=== PATIENT | male | born 1955 | race Caucasian/White ===

== ENCOUNTER 2016-12-25 08:43 | Emergency (ER) | payer BC ==
[~2016-12-25] VITALS: Ht 170.2 cm; Wt 76.0 kg
[2016-12-25 08:49] VITALS: BP 122/72; PULSE 76; RESP 16; TEMP 97.5; O2SAT 98
--- NOTE | 2016-12-25 09:24 | PD ---
HPI Chief Complaint: ENT Complaint Time Seen by Provider: 09:09 Travel History International Travel<30 days: No Contact w/Intl Traveler<30days: No Traveled to known affect area: No History of Present Illness HPI This patient complains of right ear pain. His hearing is normal. He's been using some eardrops prescribed by his doctor but they haven't been helping. Symptoms severity is moderate PFSH Past Medical History Medical History: Denies Significant Hx Social History Alcohol Use: Yes (OCC) Tobacco Use: No Substance Use: No Allergies-Medications (Allergen,Severity, Reaction): Coded Allergies: No Known Allergies (Verified Allergy, Unknown, 12/25/16) Review of Systems General / Constitutional: No: Fever HENT: No: Headaches Cardiovascular: No: Chest Pain or Discomfort Physical Exam Narrative NECK: Symmetrical appearance, midline trachea. No mass or crepitus. Thyroid without enlargement, tenderness, or mass. SKIN: Focused skin assessment reveals no rash or ulcers. Skin is warm and dry. Palpation shows no induration or nodules. Throat clear Left TM and canal normal Right canal is erythematous and inflamed with a bit of drainage Right pinna looks normal with no mastoid tenderness Data Data Last Documented VS Vital Signs Date Time Temp Pulse Resp B/P (MAP) Pulse Ox O2 Delivery O2 Flow Rate FiO2 12/25/16 08:49 97.5 76 16 122/72 (89) 98 MDM Medical Decision Making Medical Screen Exam Complete: Yes Emergency Medical Condition: Yes Medical Record Reviewed: Yes Differential Diagnosis Otitis externa, otitis media, pharyngitis Narrative Course I have reviewed the patient's electronic medical record. Patient's exam does suggest a right sided otitis externa He will stop the drops that have not been working Prescribe some Floxin otic and gave him a few Tylenol 3 for symptom relief Diagnosis Primary Impression: Acute pain of right ear Additional Instructions: The patient was advised to follow up with their physician and return if they worsen. The patient was warned about potential sedation for the medications they will receive on prescription. Med/Other Pt SpecificInfo: Prescription(s) given Disposition: 01 DISCHARGE HOME Condition: Stable Rocco Grissom MD Dec 25, 2016 09:24
[2016-12-25] MEDS ORDERED: TYLETAB34 PO (09:25)
[2016-12-25] MEDS ORDERED: OFLO1SOL RIGHT EAR (09:25)
== END 2016-12-25 09:45 | disposition home or self-care (01) ==
LOC: PHEFT 08:43 → MERGE 08:43 → PHEFT 09:45
DX: H92.01 Otalgia, right ear (principal)
CPT/HCPCS: 99284